=== PATIENT | male | born 1950 | race Caucasian/White ===

== ENCOUNTER 2017-09-22 11:08 | Emergency (ER) | payer OTHER ==
[~2017-09-22] VITALS: Ht 177.8 cm; Wt 102.0 kg
[~2017-09-22 11:08] MED LIST: ASPEC325 PO; CMD5 PO; GLCPUNK; TNRUNK; [UNRECOGNIZED DRUG - CODE]
[2017-09-22 11:12] VITALS: Ht 177.8 cm; Wt 102.0 kg
--- NOTE | 2017-09-22 11:53 | EMERGENCY ROOM VISIT NOTE ---
History Report prepared by Su: Melissa Peng Under the Supervision of: Dr. Abhinav Singh D.O. First contact with patient: 11:24 Chief Complaint: FLU LIKE SX Stated Complaint: FOOT PAIN,DIABETIC,FLU SYMPTOMS History of Present Illness The patient is a 67 year old male who presents to the Emergency Room with complaints of constant right foot pain since yesterday morning [employer]. He notes that he woke up yesterday morning with right foot pain and swelling. He notes that he has been sick for six days with cold and flu like symptoms. He has not been diagnosed with influenza. He notes his is now sick as well. He notes fevers, nausea, productive cough with green sputum, general weakness, and fatigue. He currently rates his pain a 2/10 in severity. He notes that he has had a flu shot this year. 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 He notes the acid reflux has been going on for two weeks. He denies any history of gout. He is currently taking aspirin daily. Source of History: patient Onset: yesterday morning [employer] Position: foot (right) Symptom Intensity: 2/10 Timing: constant Associated Symptoms: + fevers, + cough (productive with green sputum), + nausea, + fatigue, + weakness (general) Note: He notes right foot pain and swelling. Review of Systems See HPI for pertinent positives & negatives. A total of 10 systems reviewed and were otherwise negative. Past Medical & Surgical Medical Problems: (1) HTN (hypertension) (2) Type II diabetes mellitus Surgical Problems: (1) H/O eye surgery Family History Cancer Seizures Social History Smoking Status: Current Some Day Smoker Alcohol Use: occasionally Drug Use: none Marital Status: Housing Status: lives with family Occupation Status: employed Current/Historical Medications Scheduled Aspirin (Aspirin Ec), 325 MG PO DAILY Atenolol (Tenormin), 100 MG PO DAILY Benazepril (Lotensin), 40 MG PO DAILY Chlorthalidone (Chlorthalidone), 25 MG PO DAILY Cholecalciferol (Vitamin D), 3,000 UNITS PO DAILY Colchicine (Colchicine), 0.6 MG PO Q1H Glipizide (Glucotrol), 10 MG PO BID Metformin Hcl (Glucophage), 1,000 MG PO BID Pioglitazone (Actos), Unknown Dose PO DAILY Allergies Coded Allergies: No Known Allergies (Unverified , 09/22/17) Physical Exam Vital Signs Date Time Temp Pulse Resp B/P (MAP) Pulse Ox O2 Delivery O2 Flow Rate FiO2 09/22/17 14:15 36.7 60 18 146/82 96 09/22/17 13:54 36.7 60 18 146/82 96 Room Air 09/22/17 12:34 60 18 154/85 93 Room Air 09/22/17 12:02 60 09/22/17 11:12 36.3 85 16 145/97 98 Physical Exam GENERAL: Patient is awake, alert, and in no acute distress. Patient is resting comfortably and showing no signs of anxiety EYES: The conjunctivae are clear. The pupils are round and reactive. EARS, NOSE, MOUTH AND THROAT: The nose is without any evidence of any deformity. Mucous membranes are moist tongue is midline NECK: The neck is nontender and supple. RESPIRATORY: Normal respiratory effort is noted there is no evidence of wheezing rhonchi or rales CARDIOVASCULAR: Regular rate and rhythm noted there no murmurs rubs or gallops normal S1 normal S2 GASTROINTESTINAL: The abdomen is soft. Bowel sounds are present in all quadrants. Abdomen is nontender MUSCULOSKELETAL/EXTREMITIES: No deformity or decreased ROM in LE. There was erythema at right first MTP joint. Mild swelling and no sign of cellulitis SKIN: There is no obvious evidence of any rash. There are no petechiae, pallor or cyanosis noted. Pulses are symmetric bilaterally. Skin is warm and dry. No significant edema appreciated. NEUROLOGIC: Patient is awake alert and oriented x3. Medical Decision & Procedures ER Provider Diagnostic Interpretation: Radiology results as stated below per my review and radiologist interpretation: CHEST ONE VIEW PORTABLE CLINICAL HISTORY: 67 years-old Male presenting with EVALUATE RESPIRATORY DISTRESS.DYSPNEA. TECHNIQUE: Portable upright AP view of the chest was obtained. COMPARISON: None. FINDINGS: Cardiomediastinal silhouette normal. Lungs and pleural spaces clear. Osseous structures normal. Upper abdomen normal. IMPRESSION: 1. No acute cardiopulmonary disease. Electronically signed by: Myron Zimmer M.D. 09/22/2017 11:58 AM Dictated Date/Time: 09/22/2017 11:57 AM R FOOT MIN 3 VIEWS ROUTINE CLINICAL HISTORY: 67 years-old Male presenting with RIGHT GREAT TOE PAIN. TECHNIQUE: Frontal, oblique, lateral views of the right foot were obtained. COMPARISON: None. FINDINGS: The first toe is normal in appearance. No significant degenerative change. No acute fracture or malalignment. Mild diffuse soft tissue swelling suggested along the midfoot, although this could be due to prominent subcutaneous fat. Atherosclerosis. IMPRESSION: No significant osseous abnormality of the right foot. Specifically, the right first toe is normal. Electronically signed by: Myron Zimmer M.D. 09/22/2017 12:00 PM Dictated Date/Time: 09/22/2017 11:58 AM R VENOUS DOPP LOWER EXT UNILAT CLINICAL HISTORY: 67 years-old Male presenting with RLE PAIN. TECHNIQUE: Real-time grayscale and color and spectral Doppler ultrasound imaging of the veins of the right lower extremity was performed. Compression and augmentation were also utilized. COMPARISON: None. FINDINGS: Right: Common femoral vein: Patent. Greater saphenous vein: Patent. Deep femoral vein: Patent. Femoral vein: Patent. Popliteal vein: Patent. Calf veins: Patent. Other: None. IMPRESSION: No evidence of deep venous thrombosis. Electronically signed by: Myron Zimmer M.D. 09/22/2017 1:08 PM Dictated Date/Time: 09/22/2017 1:08 PM Laboratory Results 09/22/17 11:45 Red Blood Count 4.56, Mean Corpuscular Volume 89.9, Mean Corpuscular Hemoglobin 31.8, Mean Corpuscular Hemoglobin Concent 35.4, Mean Platelet Volume 10.4, Neutrophils (%) (Auto) 73.1, Lymphocytes (%) (Auto) 15.0, Monocytes (%) (Auto) 7.3, Eosinophils (%) (Auto) 3.6, Basophils (%) (Auto) 0.5, Neutrophils # (Auto) 7.82, Lymphocytes # (Auto) 1.60, Monocytes # (Auto) 0.78, Eosinophils # (Auto) 0.38, Basophils # (Auto) 0.05 09/22/17 11:45 Test 09/22/17 11:45 09/22/17 12:00 White Blood Count 10.68 K/uL (4.8-10.8) Red Blood Count 4.56 M/uL (4.7-6.1) Hemoglobin 14.5 g/dL (14.0-18.0) Hematocrit 41.0 % (42-52) Mean Corpuscular Volume 89.9 fL (80-100) Mean Corpuscular Hemoglobin 31.8 pg (25-34) Mean Corpuscular Hemoglobin Concent 35.4 g/dl (32-36) Platelet Count 268 K/uL (130-400) Mean Platelet Volume 10.4 fL (7.4-10.4) Neutrophils (%) (Auto) 73.1 % Lymphocytes (%) (Auto) 15.0 % Monocytes (%) (Auto) 7.3 % Eosinophils (%) (Auto) 3.6 % Basophils (%) (Auto) 0.5 % Neutrophils # (Auto) 7.82 K/uL (1.4-6.5) Lymphocytes # (Auto) 1.60 K/uL (1.2-3.4) Monocytes # (Auto) 0.78 K/uL (0.11-0.59) Eosinophils # (Auto) 0.38 K/uL (0-0.5) Basophils # (Auto) 0.05 K/uL (0-0.2) RDW Standard Deviation 39.3 fL (36.4-46.3) RDW Coefficient of Variation 12.1 % (11.5-14.5) Immature Granulocyte % (Auto) 0.5 % Immature Granulocyte # (Auto) 0.05 K/uL (0.00-0.02) Prothrombin Time 10.4 SECONDS (9.0-12.0) Prothromb Time International Ratio 1.0 (0.9-1.1) Activated Partial Thromboplast Time 28.8 SECONDS (21.0-31.0) Partial Thromboplastin Ratio 1.1 Anion Gap 10.0 mmol/L (3-11) Est Creatinine Clear Calc Drug Dose 46.3 ml/min Estimated GFR () 42.2 Estimated GFR (Non- 36.4 BUN/Creatinine Ratio 14.9 (10-20) Uric Acid 7.9 mg/dl (2.6-7.2) Calcium Level 9.6 mg/dl (8.5-10.1) Total Bilirubin 0.8 mg/dl (0.2-1) Aspartate Amino Transf (AST/SGOT) 18 U/L (15-37) Alanine Aminotransferase (ALT/SGPT) 27 U/L (12-78) Alkaline Phosphatase 79 U/L (45-117) Troponin I < 0.015 ng/ml (0-0.045) Pro-B-Type Natriuretic Peptide 407 pg/ml (0-900) Total Protein 7.8 gm/dl (6.4-8.2) Albumin 3.5 gm/dl (3.4-5.0) Globulin 4.3 gm/dl (2.5-4.0) Albumin/Globulin Ratio 0.8 (0.9-2) Beta-Hydroxybutyric Acid 4.81 mg/dL (0.2-2.81) Influenza Type A (RT-PCR) Neg for Influ A (NEG) Influenza Type A Antigen Neg for Influ A (NEG) Influenza Type B Antigen Neg for Influ B (NEG) Influenza Type B (RT-PCR) Neg for Influ B (NEG) Laboratory results per my review. ED Course 1130: The patient was evaluated in room B5. A complete history and physical examination were performed. 1342: I reassessed the patient at this time. He is feeling better and resting comfortably. I discussed the results and treatment plan with the patient. I answered all pertaining questions that he had. He expressed understanding and verbalized agreement. The patient will be discharged home. Medical Decision Prior records/ancillary studies reviewed. Triage Nursing notes reviewed. The patient's history was concerning for respiratory difficulties. Differential diagnosis: Etiologies such as infections, reactive airway disease, pneumonia, pneumothorax , COPD, CHF, cardiac ischemia, pulmonary embolism, musculoskeletal, gastrointestinal, as well as others were entertained. The patient is a 67-year-old male who presented to the emergency department for right foot pain. The patient had a history physical exam that I thought was consistent with gout. He also complained of upper risk for symptoms such as cough. The patient had symmetric pulses in the lower extremity's. He also has a history of DVT and was concerned he may have another DVT in his right leg. I discussed patient's laboratory and radiographic studies with him. He was offered pain medication but did not wish to have any. He was encouraged to call his primary care physician to schedule follow-up appointment. He was also encouraged to follow-up with his primary care physician and continue all medications as prescribed. Otherwise he was encouraged to return to the emergency department immediately if symptoms change worsen or the need arises. Medication Reconcilliation Current Medication List: was personally reviewed by me Blood Pressure Screening Patient's blood pressure: Elevated blood pressure Blood pressure disposition: Elevated BP felt to be situational Impression Primary Impression: Gout of right foot Additional Impression: URI (upper respiratory infection) Scribe Attestation The scribe's documentation has been prepared under my direction and personally reviewed by me in its entirety. I confirm that the note above accurately reflects all work, treatment, procedures, and medical decision making performed by me. Departure Information Dispostion Home / Self-Care Prescriptions Colchicine (Colchicine) 0.6 Mg Tab 0.6 MG PO Q1H for Pain, #25 TAB Take 2 pills initially followed by 1 pill every hour until pain improves or you develop GI symptoms Prov: Abhinav Singh, DO 09/22/17 Referrals Abhinav Martinez M.D. (PCP) Forms HOME CARE DOCUMENTATION FORM, IMPORTANT VISIT INFORMATION Patient Instructions Gout, My [facility] Additional Instructions Continue all medications as prescribed. Continue using Tylenol as directed for pain. You may try using a small amount of ibuprofen for pain as we discussed. Follow-up with your family doctor soon as possible. Return to the emergency department if symptoms change worsen or need arises. Problem Qualifiers Primary Impression: Gout of right foot Gout etiology: unspecified cause Chronicity: acute Qualified Codes: M10.9 - Gout, unspecified Additional Impression: URI (upper respiratory infection) URI type: unspecified URI Qualified Codes: J06.9 - Acute upper respiratory infection, unspecified
--- NOTE | 2017-09-22 11:59 | DIAGNOSTIC IMAGING REPORT ---
CHEST ONE VIEW PORTABLE CLINICAL HISTORY: 67 years-old Male presenting with EVALUATE RESPIRATORY DISTRESS.DYSPNEA. TECHNIQUE: Portable upright AP view of the chest was obtained. COMPARISON: None. FINDINGS: Cardiomediastinal silhouette normal. Lungs and pleural spaces clear. Osseous structures normal. Upper abdomen normal. IMPRESSION: 1. No acute cardiopulmonary disease. Electronically signed by: Myron Zimmer M.D. 09/22/2017 11:58 AM Dictated Date/Time: 09/22/2017 11:57 AM
--- NOTE | 2017-09-22 12:01 | DIAGNOSTIC IMAGING REPORT ---
R FOOT MIN 3 VIEWS ROUTINE CLINICAL HISTORY: 67 years-old Male presenting with RIGHT GREAT TOE PAIN. TECHNIQUE: Frontal, oblique, lateral views of the right foot were obtained. COMPARISON: None. FINDINGS: The first toe is normal in appearance. No significant degenerative change. No acute fracture or malalignment. Mild diffuse soft tissue swelling suggested along the midfoot, although this could be due to prominent subcutaneous fat. Atherosclerosis. IMPRESSION: No significant osseous abnormality of the right foot. Specifically, the right first toe is normal. Electronically signed by: Myron Zimmer M.D. 09/22/2017 12:00 PM Dictated Date/Time: 09/22/2017 11:58 AM
[2017-09-22 12:04] LABS: BASO % 0.5 %; BASO ABS # 0.05 K/uL (0-0.2); EOS % 3.6 %; EOS ABS # 0.38 K/uL (0-0.5); HEMOGLOBIN 14.5 g/dL (14.0-18.0); IG# 0.05 K/uL (0.00-0.02); MEAN CELL VOLUME 89.9 fL (80-100); MEAN CORPUSCULAR HEMOGLOBIN 31.8 pg (25-34); MEAN CORPUSCULAR HGB CONC 35.4 g/dl (32-36); MEAN PLATELET VOLUME 10.4 fL (7.4-10.4); MONO % 7.3 %; MONO ABS # 0.78 K/uL (0.11-0.59); NEUT % 73.1 %; NEUT ABS # 7.82 K/uL (1.4-6.5); PLATELET COUNT 268 K/uL (130-400); RED CELL DISTRIBUTION WIDTH CV 12.1 % (11.5-14.5); RED CELL DISTRIBUTION WIDTH SD 39.3 fL (36.4-46.3); WHITE BLOOD COUNT 10.68 K/uL (4.8-10.8)
[2017-09-22 12:15] LABS: PTT PATIENT 28.8 SECONDS (21.0-31.0)
[2017-09-22 12:22] LABS: ALBUMIN 3.5 gm/dl (3.4-5.0); ALT/SGPT 27 U/L (12-78); BLOOD UREA NITROGEN 28 mg/dl (7-18); CALCIUM 9.6 mg/dl (8.5-10.1); CARBON DIOXIDE 25 mmol/L (21-32); CREATININE 1.88 mg/dl (0.60-1.40); GLUCOSE 309 mg/dl (70-99); POTASSIUM 4.1 mmol/L (3.5-5.1); SODIUM 133 mmol/L (136-145); URIC ACID 7.9 mg/dl (2.6-7.2)
[2017-09-22] MEDS ORDERED: ASPI325T39 PO (12:24)
[2017-09-22] MEDS ORDERED: ACT15 PO (12:24)
[2017-09-22] MEDS ORDERED: METF-384 PO (12:24)
[2017-09-22] MEDS ORDERED: CHOL100010 PO (12:24)
[2017-09-22] MEDS ORDERED: ATEN-175 PO (12:24)
[2017-09-22] MEDS ORDERED: HYG25 PO (12:24)
[2017-09-22] MEDS ORDERED: GLIP10TA9 PO (12:24)
[2017-09-22] MEDS ORDERED: BENA1TAB53 PO (12:24)
[2017-09-22 12:25] LABS: AST/SGOT 18 U/L (15-37); TOTAL PROTEIN 7.8 gm/dl (6.4-8.2)
[2017-09-22 12:33] LABS: ALKALINE PHOSPHATASE 79 U/L (45-117)
[2017-09-22 12:46] LABS: INFLUENZA B ANTIGEN Neg for Influ B (NEG)
--- NOTE | 2017-09-22 13:09 | DIAGNOSTIC IMAGING REPORT ---
R VENOUS DOPP LOWER EXT UNILAT CLINICAL HISTORY: 67 years-old Male presenting with RLE PAIN. TECHNIQUE: Real-time grayscale and color and spectral Doppler ultrasound imaging of the veins of the right lower extremity was performed. Compression and augmentation were also utilized. COMPARISON: None. FINDINGS: Right: Common femoral vein: Patent. Greater saphenous vein: Patent. Deep femoral vein: Patent. Femoral vein: Patent. Popliteal vein: Patent. Calf veins: Patent. Other: None. IMPRESSION: No evidence of deep venous thrombosis. Electronically signed by: Myron Zimmer M.D. 09/22/2017 1:08 PM Dictated Date/Time: 09/22/2017 1:08 PM
[2017-09-22 13:24] LABS: INFLUENZA A PCR Neg for Influ A (NEG); INFLUENZA B PCR Neg for Influ B (NEG)
[2017-09-22] MEDS ORDERED: COLC0.6T54 PO (13:55)
[2017-09-22 14:15] VITALS: BP 146/82; PULSE 60; TEMP 36.7; O2SAT 96
== END 2017-09-22 14:16 | disposition home or self-care (01) ==
LOC: C.EDB 11:09
DX: M10.9 Gout, unspecified (principal); J06.9 Acute upper respiratory infection, unspecified; I10 Essential (primary) hypertension; E11.9 Type 2 diabetes mellitus without complications; Z82.0 Family history of epilepsy and other diseases of the nervous system; Z79.82 Long term (current) use of aspirin; F17.200 Nicotine dependence, unspecified, uncomplicated